=== PATIENT | male | born 1950 | race Caucasian/White ===

== ENCOUNTER 2022-06-18 19:44 | Inpatient (IN) ==
[2022-06-18] MEDS ORDERED: 0.9 % SODIUM CHLORIDE 1,000 ML IV ONE (19:55)
[2022-06-18 20:12] LABS: POC Calcium, Ionized 1.11 (1.16-1.32); POC Creatinine 0.7 (0.6-1.2); POC Potassium 3.2 (3.3-5.1)
[2022-06-18] MEDS ORDERED: diphenhydrAMINE 50 MG/ML VIAL IV ONE (20:20)
[2022-06-18] MEDS ORDERED: ALPRAZolam 0.5 MG TABLET PO ONE (20:20)
--- NOTE | 2022-06-18 20:23 | Emergency Department Note ---
Anxiety HPI General Chief Complaint: Anxiety Stated Complaint: anxiety Time Seen by Provider: 06/18/22 19:54 Source: patient and family Mode of arrival: ambulatory Limitations: no limitations History of Present Illness HPI Narrative: Narrative: Patient presents ED with complaints of anxiety today. Patient just feels really anxious. He only takes Xanax but has not taken yet tonight. He states he only takes at night because also helps him sleep. He denies any suicidal ideation, homicidal ideation, auditory or visual hallucination, fever, chills, dysuria, hematuria, and or frequency. Son states that patient does have the begin stage of cirrhosis and his ammonia level has been going up so he does not know if that is playing a role. Patient takes lactulose 15 mg daily. said the last time he took it was this morning. states that he is just not himself as far as his energy level. She states that he is not speaking as sharply as he normally does. Seems like he is confused even though he is saying the appropriate thing. Again she refuses any facial droopiness, slurred speech, word salad. Patient denies any other alleviating or aggravating factors. Related Data Home Medications Medication Instructions Recorded Confirmed sildenafil 50 mg tablet 50 mg PO ONCE 03/12/15 06/12/22 B Complex 4 tab PO QDAY 06/18/22 06/18/22 BD 3 ml syringe with needles 1 ea IM MONTHLY 06/18/22 06/18/22 cyanocobalamin (vitamin B-12) 1 ml IM QMONTH 06/18/22 06/18/22 1,000 mcg/mL injection solution levothyroxine 112 mcg tablet 112 mcg PO BID 06/18/22 06/18/22 propranolol 10 mg tablet 1 tab PO BID 06/18/22 06/18/22 Previous Rx's Medication Instructions Recorded BD Specialty Use [place] 30 gauge #15 ea 11/13/16 x 1" (needle (disp) 30 gauge) blood sugar diagnostic (Accu-Chek #100 ea 12/23/18 Cecelia Plus test strips) blood-glucose meter (Accu-Chek #1 ea 12/23/18 Cecelia Plus Meter) alprazolam 0.5 mg tablet (Xanax) 0.5 mg PO QDAY PRN anxiety 90 days 07/06/20 #90 tabs chlorthalidone 25 mg tablet 25 mg PO QDAY Hypertension #30 tabs 03/14/22 glipizide 5 mg tablet, extended 5 mg PO QDAY #30 tabs 04/16/22 release 24 hr lactulose 10 gram/15 mL oral 15 ml PO QAM #946 mL 05/03/22 solution (Constulose) venlafaxine 37.5 mg 37.5 mg PO QDAY #30 caps 05/26/22 capsule,extended release 24 hr Allergies Allergy/AdvReac Type Severity Reaction Status Date / Time metoprolol AdvReac Mild Agitated Verified 05/26/22 09:08 Review of Systems ROS ROS Narrative: Narrative: All systems ED: reviewed and negative except as stated. [facility] Narrative Patient History Narrative: Narrative: Medical/Surgical/Family History All Active Problems (Updated 06/18/22 @ 20:59 by Israel Vance DO) Acute hepatic encephalopathy (Acute) Hyperammonemia (Acute) Thrombocytopenia (Acute) Acute hypokalemia (Acute) Elevated liver function tests (Acute) Refused influenza vaccine (Chronic) Postoperative abdominal pain (Acute) Cholelithiasis with acute on chronic cholecystitis without biliary obstruction (Chronic) Colon polyp (Chronic) Multiple gallstones (Chronic) Encounter for Health Maintenance Examination in Adult (Chronic) History of tonsillectomy (Acute) History of adenoidectomy (Acute) Hx of colonoscopy (Acute) Vitamin B12 deficiency (Chronic) Immune thrombocytopenic purpura (Chronic) Thrombocytasthenia (Acute 01/06/14) Seizures (Acute) Pancytopenia (Acute) Pancreatic calcification (Acute) Obesity (Acute) Irritable bowel disease (Acute) Insomnia (Chronic) Idiopathic thrombocytopenia purpura (Chronic) Hypothyroid (Chronic) Essential hypertension (Chronic) Hyperlipemia (Chronic) Calculus of gallbladder with chronic cholecystitis without obstruction (Chronic) ED (erectile dysfunction) (Acute) Diabetes mellitus (Chronic) Colon polyp (Acute 05/22/14) Alcoholic cirrhosis of liver (Acute) Anxiety (Acute 09/02/13) Anemia (Acute) Alcohol abuse (Chronic) Abnormal LFTs (liver function tests) (Chronic 01/06/14) Medical History Abnormal LFTs (liver function tests) (01/06/14) Alcohol abuse Alcoholic cirrhosis of liver See abdominal CT scan 04/26/2012 Anemia Anxiety (09/02/13) Calculus of gallbladder with chronic cholecystitis without obstruction Colon polyp (05/22/14) Colon polyp Diabetes mellitus ED (erectile dysfunction) Elevated liver function tests Encounter for Health Maintenance Examination in Adult Essential hypertension Hyperlipemia Hypothyroid Patient did have hyperthyroidism and had radiation treatment Idiopathic thrombocytopenia purpura Immune thrombocytopenic purpura Insomnia Irritable bowel disease Obesity Pancreatic calcification See abdominal CT scan 04/26/2012. Questionable chronic pancreatitis. Pancytopenia Seizures Last seizure was in 1993 and 1994 took medications for 7 years Thrombocytasthenia (01/06/14) Vitamin B12 deficiency Surgical History History of adenoidectomy when patient was [age] History of knee surgery 08/2009-bilateral knee surgery to reattach tendons History of laparoscopic cholecystectomy 01/22/2018 History of tonsillectomy when patient was [age] Hx of colonoscopy Family History Brother Family history of malignant neoplasm of gastrointestinal tract Father Hypertension Social History Smoking Status: Never smoker Alcohol Intake Frequency: 0-2 drinks per day Substance Use: does not use Exam Narrative Narrative: Narrative: General Limitations: no limitations General appearance: Present alert Head Head: Present atraumatic and normocephalic Respiratory Respiratory: Present normal lung sounds bilaterally; Absent respiratory distress Cardiovascular Cardiovascular: Present regular rate and normal rhythm Neurological Neurological: Present oriented X3 Psychiatric Psychiatric: Present anxious and polite Skin Skin: Present warm (WNL) and intact Course Course Course Narrative: Patient was evaluated for anxiety and some altered mental status when compared to baseline. Patient was alert and oriented but his responses were slow and his family state that this is not baseline for him. Labs show that patient was hypokalemic with a potassium of 3.2 which will replace orally. His ammonia level was extremely elevated greater than 170 which is most likely playing a role. He was given Xanax for his anxiety here in the ED. Labs also showed patient was thrombocytopenic which is chronic for him. Due to his elevated ammonia level and hepatic encephalopathy I believe patient should be admitted to the hospital. case discussed with hospitalist who has graciously accepted pt to be admitted Consultations Consultation #1: Case discussed with hospitalist, Dr. Webb, who is graciously accepted patient to be admitted to the hospital. Time: 21:25 Vital Signs Vital signs: Vital Signs Temperature 98.6 F 06/18/22 19:45 Pulse Rate 70 06/18/22 19:45 Respiratory Rate 18 06/18/22 19:45 Blood Pressure 156/88 06/18/22 19:45 Pulse Oximetry (%) 98 06/18/22 19:45 Oxygen Delivery Method 06/18/22 19:45 Temperature 98.6 F 06/18/22 19:45 Pulse Rate 73 06/18/22 21:01 Respiratory Rate 25 H 06/18/22 21:01 Blood Pressure 149/82 06/18/22 21:01 Pulse Oximetry (%) 97 06/18/22 21:01 Oxygen Delivery Method 06/18/22 19:45 MDM MDM Narrative Medical decision making narrative: Narrative: Differential Diagnosis Differential Diagnosis: Anxiety, elevated ammonia levels, UTI Medical Records Medical records reviewed: Yes I reviewed the patient's medical records. Lab Data Lab results reviewed: Yes I reviewed the patient's lab results. Result diagrams: 06/18/22 20:02 Labs: Lab Results 06/18/22 06/18/22 06/18/22 Range/Units 20:02 20:02 20:02 WBC 4.6 (4.5-11.0) K/mcL RBC 3.73 L (4.63-6.08) M/mcL Hgb 13.9 (13.7-17.5) g/dL Hct 38.8 L (40.1-51.0) % POC Hct (41-55) MCV 104.0 H (80.0-100.0) fL MCH 37.3 H (26.0-34.0) pg MCHC 35.8 (31.0-36.0) g/dL RDW 13.2 (11.5-14.5) % Plt Count 40 L* (140-440) K/mcL MPV 13.2 H (7.4-10.4) fL Immature Gran % (Auto) 0.4 (0.0-0.5) % Neut % (Auto) 72.3 (38.0-78.0) % Lymph % (Auto) 16.8 (15.5-49.0) % [place] % (Auto) 8.3 (1.0-12.0) % Eos % (Auto) 1.8 (0.0-7.0) % Baso % (Auto) 0.4 (0.0-2.0) % Lymph # (Auto) 0.77 L (1.50-4.80) K/mcL [place] # (Auto) 0.38 (0.10-0.90) K/mcL Eos # (Auto) 0.08 (0.00-0.70) K/mcL Baso # (Auto) 0.02 (0.00-0.30) K/mcL Immature Gran # 0.02 (0.00-0.05) K/mcl Absolute Neutrophils 3.30 (1.80-8.00) K/mcL POC Sodium (133-145) POC Potassium (3.3-5.1) POC Chloride (96-108) POC Total CO2 (22-30) POC BUN (6-20) POC Creatinine (0.6-1.2) POC Glucose (70-105) POC WB Ioniz Calcium (1.16-1.32) Total Bilirubin 2.1 H (0.1-1.0) mg/dL Direct Bilirubin 0.6 H (<0.3) mg/dL AST 80 H (<40) U/L ALT 63 H (<40) U/L Alkaline Phosphatase 161 H (39-117) U/L Ammonia 173 H (16-60) umol/L Total Protein 7.1 (5.9-8.4) gm/dL Albumin 3.6 (3.2-5.2) gm/dL Globulin 3.5 (2.2-3.7) gm/dL 06/18/22 Range/Units 20:07 WBC (4.5-11.0) K/mcL RBC (4.63-6.08) M/mcL Hgb (13.7-17.5) g/dL Hct (40.1-51.0) % POC Hct 41.0 (41-55) MCV (80.0-100.0) fL MCH (26.0-34.0) pg MCHC (31.0-36.0) g/dL RDW (11.5-14.5) % Plt Count (140-440) K/mcL MPV (7.4-10.4) fL Immature Gran % (Auto) (0.0-0.5) % Neut % (Auto) (38.0-78.0) % Lymph % (Auto) (15.5-49.0) % [place] % (Auto) (1.0-12.0) % Eos % (Auto) (0.0-7.0) % Baso % (Auto) (0.0-2.0) % Lymph # (Auto) (1.50-4.80) K/mcL [place] # (Auto) (0.10-0.90) K/mcL Eos # (Auto) (0.00-0.70) K/mcL Baso # (Auto) (0.00-0.30) K/mcL Immature Gran # (0.00-0.05) K/mcl Absolute Neutrophils (1.80-8.00) K/mcL POC Sodium 140 (133-145) POC Potassium 3.2 L (3.3-5.1) POC Chloride 106 (96-108) POC Total CO2 22.0 (22-30) POC BUN 11 (6-20) POC Creatinine 0.7 (0.6-1.2) POC Glucose 148 H (70-105) POC WB Ioniz Calcium 1.11 L (1.16-1.32) Total Bilirubin (0.1-1.0) mg/dL Direct Bilirubin (<0.3) mg/dL AST (<40) U/L ALT (<40) U/L Alkaline Phosphatase (39-117) U/L Ammonia (16-60) umol/L Total Protein (5.9-8.4) gm/dL Albumin (3.2-5.2) gm/dL Globulin (2.2-3.7) gm/dL Core Measures AMI Core Measures Followed: Yes Discharge Plan Patient/Caregiver Discharge Instructions Pt seen by SENIOR SPECIALIST/PA only: No Clinical Impression: Acute hepatic encephalopathy, Hyperammonemia, Thrombocytopenia, Acute hypokalemia Patient Disposition: Xfer As Outpt/Obs ([facility]) Condition: Fair Follow up with: Albaro Benjamin MD [Primary Care Provider] - Prescriptions: No Action (DME) needle (disp) 30 gauge [BD Specialty Use [place]] 30 x 1 " needle See Dose Instructions .ROUTE .MEDSUPPLY Qty: 15 0RF Dose Instruction: As directed Rx Instructions: use as directed for B12 injections monthly alprazolam [Xanax] 0.5 mg tablet 0.5 mg PO QDAY PRN (Reason: anxiety) 90 Days Qty: 90 1RF Rx Instructions: Patient is aware of potential for abuse, cognitive dysfunction chlorthalidone 25 mg tablet 25 mg PO QDAY Qty: 30 11RF Rx Instructions: 1 tablet in a.m. glipizide 5 mg tablet extended release 24 hr 5 mg PO QDAY Qty: 30 2RF lactulose [Constulose] 10 gram/15 mL solution 15 ml PO QAM Qty: 946 2RF sildenafil 50 mg tablet 50 mg PO ONCE PRN (Reason: Sexual Activity) Rx Instructions: administer 30 minutes to 4 hours before activity (DME) blood-glucose meter [Accu-Chek Cecelia Plus Meter] misc See Dose Instructions .ROUTE .MEDSUPPLY Qty: 1 0RF Dose Instruction: As directed Rx Instructions: As directed (DME) Accu-Chek Cecelia Plus test strp strip See Dose Instructions .ROUTE .MEDSUPPLY Qty: 100 5RF Dose Instruction: As directed Rx Instructions: Test 1 - 2 times a day venlafaxine 37.5 mg capsule,extended release 24hr 37.5 mg PO QDAY Qty: 30 1RF Rx Instructions: Call office in 2 weeks. B Complex 4 tab PO QDAY propranolol 10 mg tablet 1 tab PO BID cyanocobalamin (vitamin B-12) 1,000 mcg/mL solution 1 ml IM QMONTH levothyroxine 112 mcg tablet 112 mcg PO BID BD 3 ml syringe with needles 1 ea IM MONTHLY Rx Instructions: use as directed for B12 injections IM MONTHLY
[2022-06-18 20:45] LABS: Basophils # (Auto) 0.02 K/mcL (0.00-0.30); Basophils % (Auto) 0.4 % (0.0-2.0); Eosinophils # (Auto) 0.08 K/mcL (0.00-0.70); Eosinophils % (Auto) 1.8 % (0.0-7.0); Hematocrit 38.8 % (40.1-51.0); Hemoglobin 13.9 g/dL (13.7-17.5); Lymphocytes # (Auto) 0.77 K/mcL (1.50-4.80); Lymphocytes % (Auto) 16.8 % (15.5-49.0); Mean Corpuscular HGB Conc 35.8 g/dL (31.0-36.0); Mean Platelet Volume 13.2 fL (7.4-10.4); Monocytes # (Auto) 0.38 K/mcL (0.10-0.90); Monocytes % (Auto) 8.3 % (1.0-12.0); Neutrophils % (Auto) 72.3 % (38.0-78.0); Platelet Count 40 K/mcL (140-440); RBC 3.73 M/mcL (4.63-6.08); Red Cell Distribution Width 13.2 % (11.5-14.5); WBC 4.6 K/mcL (4.5-11.0)
[2022-06-18 21:00] LABS: ALT/SGPT 63 U/L (<40); AST/SGOT 80 U/L (<40); Albumin 3.6 gm/dL (3.2-5.2); Alkaline Phosphatase 161 U/L (39-117); Bilirubin,Direct 0.6 mg/dL (<0.3); Bilirubin,Total 2.1 mg/dL (0.1-1.0); Globulin 3.5 gm/dL (2.2-3.7)
[2022-06-18] MEDS ORDERED: POTASSIUM CHLORIDE 20 MEQ TABLET PO ONE (21:09)
[2022-06-18] MEDS ORDERED: LACTULOSE 20 GM/30 ML ORAL.SOL PO ONE (21:12)
--- NOTE | 2022-06-18 21:46 | Internal Med History&Physical ---
HPI History of Present Illness Patient information: Note initiated : 06/18/22 at 9:42 pm Service Date, if different from initiated Date: [] Patient: Nolan Trinh a 71 y/o M admitted on for anxiety. Chief Complaint: [] History of present illness: Mr. Trinh is a 71 year old M Presents to the ED with anxiety and confusion. Per the he has been increasingly confused today and she says he has been more drowsy and sleepy but also more anxious. He has had issues with anxiety in the past per notes. He also has a history of alcoholic cirrhosis. His ammonia was 173 in the ED and I also note that looking at the old labs on March he had a level of 143. He says he takes lactulose every day and has several bowel movements a day. He says he quit drinking alcohol 3 months ago. Follows with Shivani Soto and Dr. Wong. He had an EGD a week ago that showed mild esophageal varices and congestive gastropathy was noted. Patient has some nausea but no vomiting today. Patient denies abdominal swelling or pain. No report of GI bleeding. Review of Systems: Positives as above. Denies headache/fever/chills/vomiting/chest or abdominal pain/cough/dyspnea/diarrhea. Many 10 point review of system reviewed negative PFSH PFSH All Active Problems (Updated 06/18/22 @ 20:59 by Israel Vance DO) Acute hepatic encephalopathy (Acute) Hyperammonemia (Acute) Thrombocytopenia (Acute) Acute hypokalemia (Acute) Elevated liver function tests (Acute) Refused influenza vaccine (Chronic) Postoperative abdominal pain (Acute) Cholelithiasis with acute on chronic cholecystitis without biliary obstruction (Chronic) Colon polyp (Chronic) Multiple gallstones (Chronic) Encounter for Health Maintenance Examination in Adult (Chronic) History of tonsillectomy (Acute) History of adenoidectomy (Acute) Hx of colonoscopy (Acute) Vitamin B12 deficiency (Chronic) Immune thrombocytopenic purpura (Chronic) Thrombocytasthenia (Acute 01/06/14) Seizures (Acute) Pancytopenia (Acute) Pancreatic calcification (Acute) Obesity (Acute) Irritable bowel disease (Acute) Insomnia (Chronic) Idiopathic thrombocytopenia purpura (Chronic) Hypothyroid (Chronic) Essential hypertension (Chronic) Hyperlipemia (Chronic) Calculus of gallbladder with chronic cholecystitis without obstruction (Chronic) ED (erectile dysfunction) (Acute) Diabetes mellitus (Chronic) Colon polyp (Acute 05/22/14) Alcoholic cirrhosis of liver (Acute) Anxiety (Acute 09/02/13) Anemia (Acute) Alcohol abuse (Chronic) Abnormal LFTs (liver function tests) (Chronic 01/06/14) Medical History Abnormal LFTs (liver function tests) (01/06/14) Alcohol abuse Alcoholic cirrhosis of liver See abdominal CT scan 04/26/2012 Anemia Anxiety (09/02/13) Calculus of gallbladder with chronic cholecystitis without obstruction Colon polyp (05/22/14) Colon polyp Diabetes mellitus ED (erectile dysfunction) Elevated liver function tests Encounter for Health Maintenance Examination in Adult Essential hypertension Hyperlipemia Hypothyroid Patient did have hyperthyroidism and had radiation treatment Idiopathic thrombocytopenia purpura Immune thrombocytopenic purpura Insomnia Irritable bowel disease Obesity Pancreatic calcification See abdominal CT scan 04/26/2012. Questionable chronic pancreatitis. Pancytopenia Seizures Last seizure was in 1993 and 1994 took medications for 7 years Thrombocytasthenia (01/06/14) Vitamin B12 deficiency Surgical History History of adenoidectomy when patient was [age] History of knee surgery 08/2009-bilateral knee surgery to reattach tendons History of laparoscopic cholecystectomy 01/22/2018 History of tonsillectomy when patient was [age] Hx of colonoscopy Family History Brother Family history of malignant neoplasm of gastrointestinal tract Father Hypertension Social History household members: spouse housing: house lives independently: Yes marital status: occupational status: retired smoking status: Never smoker alcohol intake frequency: 0-2 drinks per day substance use type: does not use MEDS/ALLERGIES Home Medications and Allergies Home Medications Medication Instructions Recorded Confirmed Type sildenafil 50 mg tablet 50 mg PO ONCE PRN Sexual Activity 03/12/15 06/18/22 History BD Specialty Use [place] 30 gauge #15 ea 11/13/16 06/18/22 Rx x 1" (needle (disp) 30 gauge) blood sugar diagnostic (Accu-Chek #100 ea 12/23/18 06/18/22 Rx Cecelia Plus test strips) blood-glucose meter (Accu-Chek #1 ea 12/23/18 06/18/22 Rx Cecelia Plus Meter) alprazolam 0.5 mg tablet (Xanax) 0.5 mg PO QDAY PRN anxiety 90 days 07/06/20 06/18/22 Rx #90 tabs chlorthalidone 25 mg tablet 25 mg PO QDAY Hypertension #30 tabs 03/14/22 06/18/22 Rx glipizide 5 mg tablet, extended 5 mg PO QDAY #30 tabs 04/16/22 06/18/22 Rx release 24 hr lactulose 10 gram/15 mL oral 15 ml PO QAM #946 mL 05/03/22 06/18/22 Rx solution (Constulose) venlafaxine 37.5 mg 37.5 mg PO QDAY #30 caps 05/26/22 06/18/22 Rx capsule,extended release 24 hr B Complex 4 tab PO QDAY 06/18/22 06/18/22 History BD 3 ml syringe with needles 1 ea IM MONTHLY 06/18/22 06/18/22 History cyanocobalamin (vitamin B-12) 1 ml IM QMONTH 06/18/22 06/18/22 History 1,000 mcg/mL injection solution levothyroxine 112 mcg tablet 112 mcg PO BID 06/18/22 06/18/22 History propranolol 10 mg tablet 1 tab PO BID 06/18/22 06/18/22 History Allergies Allergy/AdvReac Type Severity Reaction Status Date / Time metoprolol AdvReac Mild Agitated Verified 05/26/22 09:08 EXAM Constitutional Vitals: Temp Pulse Resp BP Pulse Ox O2 Del Method 98.6 F 73 25 H 149/82 97 06/18/22 19:45 06/18/22 21:01 06/18/22 21:01 06/18/22 21:01 06/18/22 21:01 06/18/22 19:45 Exam: General: Alert, Awake, No acute Distress, obese Eyes/N/T: EOMI, PERRL, MM Head/Neck: neck supple, normocephalic atraumatic CV: RRR, No murmurs, normal s1/s2 Pulm: Clear b/l, no wheezing/rhonchi/rales Abd: soft, nontender, +BS x4 Ext: no clubbing/cyanosis/edema Neuro: somewhat drowsy, no focal deficits, moves all extremities, CN 2-12 grossly intact, symmetrical strength b/l upper/lower, sensations intact b/l upper/lower. Mildly confused and slow to answer questions Skin: warm/dry DATA Data Completed and Pending Labs: Labs from last 24 hours 06/18/22 06/18/22 06/18/22 20:07 20:02 20:02 WBC RBC Hgb Hct POC Hct 41.0 MCV MCH MCHC RDW Plt Count MPV Immature Gran % (Auto) Neut % (Auto) Lymph % (Auto) [place] % (Auto) Eos % (Auto) Baso % (Auto) Lymph # (Auto) [place] # (Auto) Eos # (Auto) Baso # (Auto) Immature Gran # Absolute Neutrophils POC Sodium 140 POC Potassium 3.2 L POC Chloride 106 POC Total CO2 22.0 POC BUN 11 POC Creatinine 0.7 POC Glucose 148 H POC WB Ioniz Calcium 1.11 L Total Bilirubin 2.1 H Direct Bilirubin 0.6 H AST 80 H ALT 63 H Alkaline Phosphatase 161 H Ammonia 173 H Total Protein 7.1 Albumin 3.6 Globulin 3.5 06/18/22 20:02 WBC 4.6 RBC 3.73 L Hgb 13.9 Hct 38.8 L POC Hct MCV 104.0 H MCH 37.3 H MCHC 35.8 RDW 13.2 Plt Count 40 L* MPV 13.2 H Immature Gran % (Auto) 0.4 Neut % (Auto) 72.3 Lymph % (Auto) 16.8 [place] % (Auto) 8.3 Eos % (Auto) 1.8 Baso % (Auto) 0.4 Lymph # (Auto) 0.77 L [place] # (Auto) 0.38 Eos # (Auto) 0.08 Baso # (Auto) 0.02 Immature Gran # 0.02 Absolute Neutrophils 3.30 POC Sodium POC Potassium POC Chloride POC Total CO2 POC BUN POC Creatinine POC Glucose POC WB Ioniz Calcium Total Bilirubin Direct Bilirubin AST ALT Alkaline Phosphatase Ammonia Total Protein Albumin Globulin A/P Narrative A/P Narrative: A: *Hepatic Encephalopathy: -Patient states he has been taking his lactulose and having several bowel movements a day -Seems ammonia has been chronically elevated per records *Alcoholic cirrhosis: Follows with Shivani Soto -Sequelae of thrombocytopenia/hyperbilirubinemia/small esophageal varices *Hypokalemia, mild: *Depression/anxiety: *DM2: *Hypothyroidism: P: -Continue home lactulose(titrate to 2-3 BM/day) and add rifaximin -IVF -Potassium repletion -abd ultrasound assess for ascites -Hold diuretic for now -ssi -check TSH/INR - -PT/OT -CM for placement needs -ppx: SCD(hold chemical for plt <50k) Time Spent With Patient Time: Total time spent is greater than 50% in coordination of care (as documented) at patient's floor/unit and/or counseling patient: Total time spent with greater than 50% in coordination of care (as documented) at patient's floor/unit and/or counseling patient:: Greater than 70 minutes QUALITY Stroke Symptom Onset Unknown: No
[2022-06-19] MEDS ORDERED: DEXTROSE 50% 50 ML VIAL IV PRN (05:11)
[2022-06-19] MEDS ORDERED: LACTULOSE 20 GM/30 ML ORAL.SOL PO PRN (05:11)
[2022-06-19] MEDS ORDERED: LORazepam 2 MG/ML VIAL IV PRN (05:11)
[2022-06-19] MEDS ORDERED: IPRATROPIUM/ALBUTEROL 3 ML AMPUL.NEB NEB PRN (05:11)
[2022-06-19] MEDS ORDERED: ONDANSETRON 4 MG/2 ML VIAL IV PRN (05:11)
[2022-06-19] MEDS ORDERED: 0.9 % SODIUM CHLORIDE 1,000 ML IV ONE (05:11)
[2022-06-19] MEDS ORDERED: POTASSIUM CHLORIDE 40 MEQ in DEXTROSE 5% IN WATER 500 ML IV PRN (05:11)
[2022-06-19] MEDS ORDERED: DEXTROSE 31 GM ORAL.SUSP PO PRN (05:11)
[2022-06-19] MEDS ORDERED: MAGNESIUM SULFATE 2 GM/50 ML BAG IV PRN (05:11)
[2022-06-19] MEDS ORDERED: POTASSIUM CHLORIDE 20 MEQ TABLET PO PRN ×2 (05:11)
[2022-06-19] MEDS ORDERED: ACETAMINOPHEN 325 MG TABLET PO PRN (05:11)
[2022-06-19 06:36] LABS: INR 1.2 (0.9-1.1); Prothrombin Time 15.8 sec (11.9-14.5)
[2022-06-19 06:43] LABS: Basophils # (Auto) 0.03 K/mcL (0.00-0.30); Basophils % (Auto) 0.6 % (0.0-2.0); Eosinophils # (Auto) 0.09 K/mcL (0.00-0.70); Eosinophils % (Auto) 1.8 % (0.0-7.0); Hematocrit 39.6 % (40.1-51.0); Hemoglobin 13.8 g/dL (13.7-17.5); Lymphocytes # (Auto) 1.06 K/mcL (1.50-4.80); Lymphocytes % (Auto) 20.7 % (15.5-49.0); Mean Cell Volume 103.7 fL (80.0-100.0); Mean Corpuscular HGB Conc 34.8 g/dL (31.0-36.0); Mean Platelet Volume 12.9 fL (7.4-10.4); Monocytes # (Auto) 0.51 K/mcL (0.10-0.90); Neutrophils % (Auto) 66.7 % (38.0-78.0); Platelet Count 41 K/mcL (140-440); RBC 3.82 M/mcL (4.63-6.08); Red Cell Distribution Width 13.1 % (11.5-14.5); WBC 5.1 K/mcL (4.5-11.0)
[2022-06-19 07:00] LABS: ALT/SGPT 60 U/L (<40); AST/SGOT 79 U/L (<40); Albumin 3.3 gm/dL (3.2-5.2); Albumin/Globulin Ratio 0.9 (1.0-2.3); Alkaline Phosphatase 133 U/L (39-117); Bilirubin,Direct 0.8 mg/dL (<0.3); Bilirubin,Total 2.7 mg/dL (0.1-1.0); Blood Urea Nitrogen 11 mg/dL (8-23); Calcium 8.7 mg/dL (8.6-10.4); Carbon Dioxide 22 mmol/L (22-30); Chloride 105 mmol/L (96-108); Globulin 3.7 gm/dL (2.2-3.7); Glomerular Filtration Rate 96; Glucose 84 mg/dL (70-105); Lactate Dehydrogenase 283 U/L (135-225); Phosphorous 3.9 mg/dL (2.5-4.5); Thyroid Stimulating Hormone 0.04 uIU/mL (0.27-5.01); Triglycerides 176 mg/dL (<150); Uric Acid 5.1 mg/dL (2.5-8.0)
[2022-06-19] MEDS ORDERED: LEVOTHYROXINE SODIUM 112 MCG TABLET PO SCH (07:30)
--- NOTE | 2022-06-19 07:44 | Internal Med Progress Note ---
SUBJECTIVE Subjective Patient information: Note initiated : 06/19/22 at 7:41 am Service Date, if different from initiated Date: [] Patient: Nolan Trinh 71 y/o M admitted on 06/18/22 for anxiety. Chief Complaint: [] Interval history: History of present illness: Mr. Trinh is a 71 year old M Presents to the ED with anxiety and confusion. Per the he has been increasingly confused today and she says he has been more drowsy and sleepy but also more anxious. He has had issues with anxiety in the past per notes. He also has a history of alcoholic cirrhosis. His ammonia was 173 in the ED and I also note that looking at the old labs on March he had a level of 143. He says he takes lactulose every day and has several bowel movements a day. He says he quit drinking alcohol 3 months ago. Follows with Shivani Soto and Dr. Wong. He had an EGD a week ago that showed mild esophageal varices and congestive gastropathy was noted. Patient has some nausea but no vomiting today. Patient denies abdominal swelling or pain. No report of GI bleeding. 06/19 Still with some confusion per son. Ammonia mildly decreased but still elevated. Unable to get the rifaximin until today. TSH low and T4 mildly high, likely contributing to his anxiety/agitation. We will hold levothyroxine for now and lower it when we restart. Platelets stable. Mild hypokalemia and will replace. Review of Systems: denies headache/fever/chills/nausea/vomiting/chest or abdominal pain/cough/dyspnea. Otherwise see above. Constitutional Vitals: Vital Signs Temp Pulse Resp BP Pulse Ox O2 Del Method 98.5 F 66 24 H 128/75 96 06/19/22 03:15 06/19/22 03:15 06/19/22 03:15 06/19/22 03:15 06/19/22 03:15 06/19/22 03:15 Period Temp Pulse Resp BP Sys/Choi Pulse Ox O2 Del Method O2 Flow Rate Last 24 Hr 98.5 F-98.8 F 66-73 17-31 128-156/75-100 94-99 Room Air-Room Air Intake and Output 06/18/22 06/19/22 06/19/22 21:59 05:59 13:59 Intake Total 0 Output Total 650 Balance -650 Weight 99.79 kg 123.15 kg Intake & Output: Intake & Output 06/18/22 06/19/22 06/19/22 21:59 05:59 13:59 Intake Total 0 Output Total 650 Balance -650 Weight 99.79 kg 123.15 kg Intake: Oral 0 Output: Void Amount 650 Other: Urine Appearance Clear Urine Color Dark Yellow Stool Size Moderate Stool Color Brown Stool Consistency Loose # Bowel Movements 1 Exam: General: Alert, Awake, No acute Distress, obese Eyes/N/T: EOMI, Head/Neck: neck supple, CV: RRR, No murmurs, Pulm: Clear b/l, no wheezing/rhonchi/rales Abd: soft, nontender, +BS x4 Ext: no clubbing/cyanosis/edema Neuro: Awake, no focal deficits, moves all extremities, mild confusion Skin: warm/dry OBJ DATA Labs CBC & Chem 7: 06/19/22 05:38 06/19/22 05:38 Labs: Abnormal Lab Results 06/19/22 06/19/22 06/19/22 05:38 05:38 05:38 RBC 3.82 L Hct 39.6 L MCV 103.7 H MCH 36.1 H Plt Count 41 L* MPV 12.9 H Lymph # (Auto) 1.06 L PT 15.8 H INR 1.2 H POC Potassium Potassium 3.1 L POC Glucose POC WB Ioniz Calcium Total Bilirubin 2.7 H Direct Bilirubin 0.8 H GGT 278 H AST 79 H ALT 60 H Alkaline Phosphatase 133 H Ammonia Lactate Dehydrogenase 283 H Albumin/Globulin Ratio 0.9 L Triglycerides 176 H TSH 0.04 L 06/18/22 06/18/22 06/18/22 20:07 20:02 20:02 RBC Hct MCV MCH Plt Count MPV Lymph # (Auto) PT INR POC Potassium 3.2 L Potassium POC Glucose 148 H POC WB Ioniz Calcium 1.11 L Total Bilirubin 2.1 H Direct Bilirubin 0.6 H GGT AST 80 H ALT 63 H Alkaline Phosphatase 161 H Ammonia 173 H Lactate Dehydrogenase Albumin/Globulin Ratio Triglycerides TSH 06/18/22 20:02 RBC 3.73 L Hct 38.8 L MCV 104.0 H MCH 37.3 H Plt Count 40 L* MPV 13.2 H Lymph # (Auto) 0.77 L PT INR POC Potassium Potassium POC Glucose POC WB Ioniz Calcium Total Bilirubin Direct Bilirubin GGT AST ALT Alkaline Phosphatase Ammonia Lactate Dehydrogenase Albumin/Globulin Ratio Triglycerides TSH Meds: Medications Acetaminophen (Acetaminophen 325 Mg Tablet) 650 mg PO Q6HP PRN; Protocol PRN Reason: Per Pain Protocol/Fever > 101 Albuterol/Ipratropium (Ipratropium/Albuterol 3 Ml Ampul.Neb) 3 ml NEB Q4HP PRN PRN Reason: Shortness Of Breath Dextrose (Dextrose 50% 50 Ml Vial) 0 ml IV UD PRN PRN Reason: Per Sliding Scale Diagnostic Test (Pha) (Accu-Chek 1 Each Strip) 1 each FS ACHS [facility] Glucose (Dextrose 31 Gm Oral.Susp) 15 gm PO PRN PRN PRN Reason: Hypoglycemia Potassium Chloride 40 meq/ (Dextrose) 520 mls @ 130 mls/hr IV UD PRN PRN Reason: Potassium < 3 Magnesium Sulfate (Magnesium Sulfate) 2 gm in 50 mls @ 50 mls/hr IV UD PRN PRN Reason: Magnesium </= 1.6 Sodium Chloride (Sodium Chloride 0.9%) 1,000 mls @ 75 mls/hr IV .[id number] ONE Stop: 06/19/22 18:30 Last Admin: 06/19/22 05:15 Dose: 75 mls/hr Insulin Human Lispro (Insulin Lispro 1 Unit/0.01 Ml Unit) 0 unit SQ [facility]; Protocol Lactulose (Lactulose 20 Gm/30 Ml Oral.Isabella) 20 gm PO DAILYP PRN PRN Reason: Constipation Lactulose (Lactulose 20 Gm/30 Ml Oral.Isabella) 20 gm PO TID [facility] Levothyroxine Sodium (Levothyroxine Sodium 112 Mcg Tablet) 224 mcg PO QAMAC [facility] Lorazepam (Lorazepam 2 Mg/Ml Vial) 0.5 mg IV Q4-6HP PRN PRN Reason: ANXIETY/SEDATION Ondansetron HCl (Ondansetron 4 Mg/2 Ml Vial) 4 mg IV Q4HP PRN PRN Reason: Nausea And Vomiting Potassium Chloride (Potassium Chloride 20 Meq Tablet) 40 meq PO UD PRN PRN Reason: Potssium is 3-3.5 Potassium Chloride (Potassium Chloride 20 Meq Tablet) 40 meq PO UD PRN PRN Reason: Potassium < 3 Propranolol HCl (Propranolol 10 Mg Tablet) 10 mg PO BID JESUS Venlafaxine HCl (Venlafaxine 37.5 Mg Tab.Er.24h) 37.5 mg PO QDAY JESUS A/P Narrative A/P Narrative: A: *Hepatic Encephalopathy: -Patient states he has been taking his lactulose and having several bowel movements a day -Seems ammonia has been chronically elevated per records *Alcoholic cirrhosis: Follows with Shivani Soto -Sequelae of thrombocytopenia/hyperbilirubinemia/transaminitis/ small esophageal varices -no ascites on u/s *h/o ITP: *Hypokalemia, mild: *Depression/anxiety: *DM2: *Hypothyroidism: tsh 0.04 and T4 1.79 P: -Continue home lactulose(titrate to 2-3 BM/day) and add rifaximin -s/p IVF -Potassium repletion -Hold diuretic for now -ssi -decrease levothyroxine -PT/OT -CM for placement needs -ppx: SCD(hold chemical for plt <50k) Time Spent With Patient Time: Total time spent is greater than 50% in coordination of care (as documented) at patient's floor/unit and/or counseling patient: Total time spent with greater than 50% in coordination of care (as documented) at patient's floor/unit and/or counseling patient:: 25 - 35 minutes QUALITY Stroke Symptom Onset Unknown: No VTE Deep Vein Thrombosis/Pulmonary Embolism Present on Admission: No
--- NOTE | 2022-06-19 08:32 | Ultrasound Report ---
History: Cirrhosis, evaluate for ascites FINDINGS: All four quadrants of the abdomen were scanned. Patient has no ascites. No gross mass is detected. IMPRESSION: Normal exam without ascites Interpreted and Authenticated by: Marcos Arellano 06/19/22
[2022-06-19] MEDS: LACTULOSE 20 GM/30 ML ORAL.SOL PO SCH ×3 (08:44→20:31)
[2022-06-19] MEDS: VENLAFAXINE 37.5 MG TAB.ER.24H PO SCH (08:45)
[2022-06-19] MEDS: PROPRANOLOL 10 MG TABLET PO SCH ×3 (08:45→20:33)
[2022-06-19] MEDS: RIFAXIMIN 550 MG TABLET PO SCH ×2 (08:45→20:32)
[2022-06-19] MEDS: POTASSIUM CHLORIDE 20 MEQ TABLET PO SCH ×2 (08:45→17:13)
[2022-06-19] MEDS: INSULIN LISPRO 1 UNIT/0.01 ML UNIT SQ SCH ×4 (08:46→20:11)
[2022-06-19 09:43] LABS: Appearance,Urine Clear (Clear); Bilirubin,Urine Negative (Negative); Color,Urine Yellow; Culture Indicated,Urine No; Glucose,Urine (UA) Negative (Negative); Ketones,Urine Negative (Negative); Leukocyte Esterase,Urine Negative /uL (Negative); Mucus,Urine FEW /hpf; Nitrate,Urine Negative (Negative); Protein,Urine Negative (Negative); Specific Gravity,Urine 1.025 (1.000-1.035); Urine Blood Trace-intact ery/mcL (Negative); Urine RBC 2 /hpf (0-3); Urine Squamous Epithelial Cell 0 /hpf (0-4); Urine WBC 1 /hpf (0-4); Urobilinogen,Urine Normal
[2022-06-19] MEDS: 0.9 % SODIUM CHLORIDE 10 ML SYRINGE IV SCH (20:32)
[2022-06-20] MEDS: 0.9 % SODIUM CHLORIDE 10 ML SYRINGE IV SCH (05:57)
[2022-06-20] MEDS: INSULIN LISPRO 1 UNIT/0.01 ML UNIT SQ SCH (07:21)
--- NOTE | 2022-06-20 07:51 | Internal Med Progress Note ---
SUBJECTIVE Subjective Patient information: Note initiated : 06/20/22 at 7:47 am Service Date, if different from initiated Date: [] Patient: Nolan Trinh 71 y/o M admitted on 06/18/22 for anxiety. Chief Complaint: [] Interval history: History of present illness: Mr. Trinh is a 71 year old M Presents to the ED with anxiety and confusion. Per the he has been increasingly confused today and she says he has been more drowsy and sleepy but also more anxious. He has had issues with anxiety in the past per notes. He also has a history of alcoholic cirrhosis. His ammonia was 173 in the ED and I also note that looking at the old labs on March he had a level of 143. He says he takes lactulose every day and has several bowel movements a day. He says he quit drinking alcohol 3 months ago. Follows with Shivani Soto and Dr. Wong. He had an EGD a week ago that showed mild esophageal varices and congestive gastropathy was noted. Patient has some nausea but no vomiting today. Patient denies abdominal swelling or pain. No report of GI bleeding. 06/19 Still with some confusion per son. Ammonia mildly decreased but still elevated. Unable to get the rifaximin until today. TSH low and T4 mildly high, likely contributing to his anxiety/agitation. We will hold levothyroxine for now and lower it when we restart. Platelets stable. Mild hypokalemia and will replace. 06/20 Patient feeling better. Much more clear. Per son is at baseline. No overnight event or new complaints. Patient will continue on rifaximin and close follow- up with GI Review of Systems: denies headache/fever/chills/nausea/vomiting/chest or abdominal pain/cough/dyspnea. Otherwise see above. Constitutional Vitals: Vital Signs Temp Pulse Resp BP Pulse Ox O2 Del Method 98.7 F 57 L 20 104/56 97 06/20/22 07:22 06/20/22 04:00 06/20/22 07:22 06/20/22 07:22 06/20/22 07:22 06/20/22 07:22 Period Temp Pulse Resp BP Sys/Choi Pulse Ox O2 Del Method O2 Flow Rate Last 24 Hr 97.7 F-98.8 F 55-66 16-24 104-134/56-77 20-98 Room Air-Room Air Intake and Output 06/19/22 06/20/22 06/20/22 21:59 05:59 13:59 Intake Total 1999 240 Output Total 1825 925 Balance 175 -685 Weight 122.198 kg Intake & Output: Intake & Output 06/19/22 06/20/22 06/20/22 21:59 05:59 13:59 Intake Total 1999 240 Output Total 1825 925 Balance 175 -685 Weight 122.198 kg Intake: IV 1000 Sodium Chloride 0.9% 1,000 ml @ 1000 75 mls/hr IV .[id number] Rx#: [id number] Oral 1000 240 Output: Void Amount 1829 925 Other: Meal Lunch Percent of Meal Consumed 100% Feeding Ability Independent Urine Appearance Clear Clear Urine Color Humphreys Humphreys Urine Odor Normal Stool Size Large Moderate Stool Color Brown Brown Stool Consistency Loose Loose # Bowel Movements 1 1 Exam: General: Alert, Awake, No acute Distress, obese Eyes/N/T: EOMI, Head/Neck: neck supple, CV: RRR, No murmurs, Pulm: Clear b/l, no wheezing/rhonchi/rales Abd: soft, nontender, +BS x4 Ext: no clubbing/cyanosis/edema Neuro: Awake, no focal deficits, moves all extremities, mentation much more clear today Skin: warm/dry OBJ DATA Labs CBC & Chem 7: 06/19/22 05:38 06/19/22 05:38 Labs: Abnormal Lab Results 06/20/22 06/19/22 06/19/22 05:48 08:38 05:38 RBC Hct MCV MCH Plt Count MPV Lymph # (Auto) PT INR POC Potassium Potassium 3.1 L POC Glucose POC WB Ioniz Calcium Total Bilirubin 2.7 H Direct Bilirubin 0.8 H GGT 278 H AST 79 H ALT 60 H Alkaline Phosphatase 133 H Ammonia 70 H Lactate Dehydrogenase 283 H Albumin/Globulin Ratio 0.9 L Triglycerides 176 H TSH 0.04 L Free T4 Urine Occult Blood Trace-intact A Urine Mucus Few A 06/19/22 06/19/22 06/19/22 05:38 05:38 05:35 RBC 3.82 L Hct 39.6 L MCV 103.7 H MCH 36.1 H Plt Count 41 L* MPV 12.9 H Lymph # (Auto) 1.06 L PT 15.8 H INR 1.2 H POC Potassium Potassium POC Glucose POC WB Ioniz Calcium Total Bilirubin Direct Bilirubin GGT AST ALT Alkaline Phosphatase Ammonia Lactate Dehydrogenase Albumin/Globulin Ratio Triglycerides TSH Free T4 1.79 H Urine Occult Blood Urine Mucus 06/18/22 06/18/22 06/18/22 20:07 20:02 20:02 RBC Hct MCV MCH Plt Count MPV Lymph # (Auto) PT INR POC Potassium 3.2 L Potassium POC Glucose 148 H POC WB Ioniz Calcium 1.11 L Total Bilirubin 2.1 H Direct Bilirubin 0.6 H GGT AST 80 H ALT 63 H Alkaline Phosphatase 161 H Ammonia 173 H Lactate Dehydrogenase Albumin/Globulin Ratio Triglycerides TSH Free T4 Urine Occult Blood Urine Mucus 06/18/22 20:02 RBC 3.73 L Hct 38.8 L MCV 104.0 H MCH 37.3 H Plt Count 40 L* MPV 13.2 H Lymph # (Auto) 0.77 L PT INR POC Potassium Potassium POC Glucose POC WB Ioniz Calcium Total Bilirubin Direct Bilirubin GGT AST ALT Alkaline Phosphatase Ammonia Lactate Dehydrogenase Albumin/Globulin Ratio Triglycerides TSH Free T4 Urine Occult Blood Urine Mucus Meds: Medications Acetaminophen (Acetaminophen 325 Mg Tablet) 650 mg PO Q6HP PRN; Protocol PRN Reason: Per Pain Protocol/Fever > 101 Albuterol/Ipratropium (Ipratropium/Albuterol 3 Ml Ampul.Neb) 3 ml NEB Q4HP PRN PRN Reason: Shortness Of Breath Dextrose (Dextrose 50% 50 Ml Vial) 0 ml IV UD PRN PRN Reason: Per Sliding Scale Diagnostic Test (Pha) (Accu-Chek 1 Each Strip) 1 each FS ACHS [facility] Last Admin: 06/20/22 07:20 Dose: 1 each Glucose (Dextrose 31 Gm Oral.Susp) 15 gm PO PRN PRN PRN Reason: Hypoglycemia Potassium Chloride 40 meq/ (Dextrose) 520 mls @ 130 mls/hr IV UD PRN PRN Reason: Potassium < 3 Magnesium Sulfate (Magnesium Sulfate) 2 gm in 50 mls @ 50 mls/hr IV UD PRN PRN Reason: Magnesium </= 1.6 Insulin Human Lispro (Insulin Lispro 1 Unit/0.01 Ml Unit) 0 unit SQ ACHS [facility]; Protocol Last Admin: 06/20/22 07:21 Dose: Not Given Lactulose (Lactulose 20 Gm/30 Ml Oral.Isabella) 20 gm PO DAILYP PRN PRN Reason: Constipation Lactulose (Lactulose 20 Gm/30 Ml Oral.Isabella) 20 gm PO TID [facility] Last Admin: 06/19/22 20:31 Dose: 20 gm Levothyroxine Sodium (Levothyroxine 150 Mcg Tablet) 150 mcg PO QAMAC [facility] Lorazepam (Lorazepam 2 Mg/Ml Vial) 0.5 mg IV Q4-6HP PRN PRN Reason: ANXIETY/SEDATION Ondansetron HCl (Ondansetron 4 Mg/2 Ml Vial) 4 mg IV Q4HP PRN PRN Reason: Nausea And Vomiting Potassium Chloride (Potassium Chloride 20 Meq Tablet) 40 meq PO UD PRN PRN Reason: Potssium is 3-3.5 Potassium Chloride (Potassium Chloride 20 Meq Tablet) 40 meq PO UD PRN PRN Reason: Potassium < 3 Propranolol HCl (Propranolol 10 Mg Tablet) 10 mg PO BID [facility] Last Admin: 06/19/22 20:33 Dose: Not Given Sodium Chloride (0.9 % Sodium Chloride 10 Ml Syringe) 10 ml IV Q8 [facility] Last Admin: 06/20/22 05:57 Dose: 10 ml Venlafaxine HCl (Venlafaxine 37.5 Mg Tab.Er.24h) 37.5 mg PO QDAY [facility] Last Admin: 06/19/22 08:45 Dose: 37.5 mg A/P Narrative A/P Narrative: A: *Hepatic Encephalopathy: appears to be baseline now per son -Patient states he has been taking his lactulose and having several bowel movements a day -Seems ammonia has been chronically elevated per records *Alcoholic cirrhosis: Follows with Shivani Soto -Sequelae of thrombocytopenia/hyperbilirubinemia/transaminitis/ small esophageal varices -no ascites on u/s *h/o ITP: *Hypokalemia, mild: *Depression/anxiety: *DM2: *Hypothyroidism: tsh 0.04 and T4 1.79 P: -Continue home lactulose(titrate to 2-3 BM/day) and added rifaximin -Potassium repletion -Hold diuretic for now -ssi -decrease levothyroxine -PT/OT -CM for placement needs -ppx: SCD(hold chemical for plt <50k) Time Spent With Patient Time: Total time spent is greater than 50% in coordination of care (as documented) at patient's floor/unit and/or counseling patient: QUALITY Stroke Symptom Onset Unknown: No VTE Deep Vein Thrombosis/Pulmonary Embolism Present on Admission: No
[2022-06-20] MEDS: VENLAFAXINE 37.5 MG TAB.ER.24H PO SCH (08:33)
[2022-06-20] MEDS: LACTULOSE 20 GM/30 ML ORAL.SOL PO SCH (08:33)
[2022-06-20] MEDS: PROPRANOLOL 10 MG TABLET PO SCH (08:33)
[2022-06-20] MEDS: RIFAXIMIN 550 MG TABLET PO SCH (08:33)
[2022-06-20 09:31] LABS: Blood Urea Nitrogen 12 mg/dL (8-23); Calcium 8.8 mg/dL (8.6-10.4); Carbon Dioxide 25 mmol/L (22-30); Chloride 99 mmol/L (96-108); Glomerular Filtration Rate 96; Glucose 109 mg/dL (70-105)
[2022-06-20] MEDS ORDERED: POTASSIUM CHLORIDE 20 MEQ TABLET PO ONE ×2 (10:00→14:00)
--- NOTE | 2022-06-20 10:06 | Discharge Summary ---
Discharge Provider Provider IMPORTANT FOLLOW-UP INFORMATION FOR PCP: Decreased patient's levothyroxine and added rifaximin, held diuretic for hypokalemia. Patient information: Note initiated : 06/20/22 at 10:04 am Service Date, if different from initiated Date: [] Patient: Nolan Trinh 71 y/o M admitted on 06/18/22 for anxiety. Chief Complaint: [] Date of admission: 06/18/22 22:47 Discharge date: 06/20/22 Primary care physician: Albaro Benjamin MD Consults: 06/18/22 Consult to Physician [CONS] Stat Comment: Consulting Provider: Daryn Webb Reason For Exam: Physician to Consult COURSE Hospital Course Hospital course: Interval history: History of present illness: Mr. Trinh is a 71 year old M Presents to the ED with anxiety and confusion. Per the he has been increasingly confused today and she says he has been more drowsy and sleepy but also more anxious. He has had issues with anxiety in the past per notes. He also has a history of alcoholic cirrhosis. His ammonia was 173 in the ED and I also note that looking at the old labs on March he had a level of 143. He says he takes lactulose every day and has several bowel movements a day. He says he quit drinking alcohol 3 months ago. Follows with Shivani Barnes and Dr. Wong. He had an EGD a week ago that showed mild esophageal varices and congestive gastropathy was noted. Patient has some nausea but no vomiting today. Patient denies abdominal swelling or pain. No report of GI bleeding. 06/19 Still with some confusion per son. Ammonia mildly decreased but still elevated. Unable to get the rifaximin until today. TSH low and T4 mildly high, likely contributing to his anxiety/agitation. We will hold levothyroxine for now and lower it when we restart. Platelets stable. Mild hypokalemia and will replace. 06/20 Patient feeling better. Much more clear. Per son is at baseline. No overnight event or new complaints. Patient will continue on rifaximin and close follow- up with GI A: *Hepatic Encephalopathy: appears to be baseline now per son -Patient states he has been taking his lactulose and having several bowel movements a day -Seems ammonia has been chronically elevated per records *Alcoholic cirrhosis: Follows with Shivani Barnes -Sequelae of thrombocytopenia/hyperbilirubinemia/transaminitis/ small esophageal varices -no ascites on u/s *h/o ITP: *Hypokalemia, mild: *Depression/anxiety: *DM2: *Hypothyroidism: tsh 0.04 and T4 1.79 P: -Continue home lactulose(titrate to 2-3 BM/day) and added rifaximin -decrease levothyroxine -f/u with Kerline barnes Discharge diagnosis: Headache Encephalopathy hyperthyroidism Secondary discharge diagnosis: Alcoholic cirrhosis history of ITP hypokalemia depression anxiety diabetes hypothyroidism Time Spent with Patient Time attestation: Total time spent providing and/or coordinating discharge services: Time spent: Greater than 30 minutes EXAM Constitutional Vitals: Temp Pulse Resp BP Pulse Ox O2 Del Method 98.7 F 57 L 20 104/56 97 06/20/22 07:22 06/20/22 04:00 06/20/22 07:22 06/20/22 07:22 06/20/22 07:22 06/20/22 07:22 Discharge Data Data Completed and Pending Labs on day of discharge: Labs from last 24 hours 06/20/22 06/20/22 05:48 05:48 Sodium 136 Potassium 3.2 L Chloride 99 Carbon Dioxide 25 Anion Gap 12.0 BUN 12 Creatinine 0.7 GFR Calculation 96 Glucose 109 H Calcium 8.8 Ammonia 70 H Discharge Plan Patient/Caregiver Discharge Instructions Activity: increase activity as tolerated Diet: Low Fat and Consistent Carbohydrate Prescriptions: New levothyroxine 150 mcg Tablet 150 mcg PO QAMAC Qty: 30 0RF Xifaxan 550 mg tablet 550 mg PO BID Qty: 60 0RF Continued (DME) needle (disp) 30 gauge [BD Specialty Use [place]] 30 x 1 " needle See Dose Instructions .ROUTE .MEDSUPPLY Qty: 15 0RF Dose Instruction: As directed Rx Instructions: use as directed for B12 injections monthly glipizide 5 mg tablet extended release 24 hr 5 mg PO QDAY Qty: 30 2RF sildenafil 50 mg tablet 50 mg PO ONCE PRN (Reason: Sexual Activity) Rx Instructions: administer 30 minutes to 4 hours before activity (DME) blood-glucose meter [Accu-Chek Cecelia Plus Meter] misc See Dose Instructions .ROUTE .MEDSUPPLY Qty: 1 0RF Dose Instruction: As directed Rx Instructions: As directed (DME) Accu-Chek Cecelia Plus test strp strip See Dose Instructions .ROUTE .MEDSUPPLY Qty: 100 5RF Dose Instruction: As directed Rx Instructions: Test 1 - 2 times a day venlafaxine 37.5 mg capsule,extended release 24hr 37.5 mg PO QDAY Qty: 30 1RF Rx Instructions: Call office in 2 weeks. B Complex 4 tab PO QDAY propranolol 10 mg tablet 1 tab PO BID cyanocobalamin (vitamin B-12) 1,000 mcg/mL solution 1 ml IM QMONTH BD 3 ml syringe with needles 1 ea IM MONTHLY Rx Instructions: use as directed for B12 injections IM MONTHLY alprazolam [Xanax] 0.5 mg tablet 0.25 mg PO QDAY PRN (Reason: anxiety) Rx Instructions: Patient is aware of potential for abuse, cognitive dysfunction lactulose 10 gram/15 mL solution 15 ml PO QAM Qty: 946 2RF Rx Instructions: Titrate to 2-3 soft bowel movements per day. Discontinued chlorthalidone 25 mg tablet 25 mg PO QDAY Qty: 30 11RF Rx Instructions: 1 tablet in a.m. levothyroxine 112 mcg tablet 224 mcg PO QAMAC Follow Up Plan Follow up with: Albaro Benjamin MD [Primary Care Provider] - Shivani Barnes ARNP [Nurse Practitioner] - Patient Disposition: Home, Self-Care Prognosis: Fair Overall status at discharge: patient is progressing back to baseline Discharge Orders: Discharge Order (Routine); Ordered 06/20/22 Ordered By: Daryn Webb [facility] VTE Deep Vein Thrombosis/Pulmonary Embolism Present on Admission: No
[2022-06-22] MEDS ORDERED: LEVOTHYROXINE 150 MCG TABLET PO SCH (07:30)
== END 2022-06-20 12:30 | disposition home or self-care (01) | DRG 433 ==
LOC: ED 19:44 → MEDSUR 22:47
PROVIDERS: ADMIT Internal Medicine; ATTEND Internal Medicine

== ENCOUNTER 2024-04-14 21:20 | Inpatient (IN) ==
[2024-04-14 22:41] LABS: Basophils # (Auto) 0.01 K/mcL (0.00-0.30); Basophils % (Auto) 0.1 % (0.0-2.0); Eosinophils # (Auto) 0.09 K/mcL (0.00-0.70); Eosinophils % (Auto) 1.2 % (0.0-7.0); Hematocrit 30.4 % (40.1-51.0); Hemoglobin 11.2 g/dL (13.7-17.5); Lymphocytes # (Auto) 0.44 K/mcL (1.50-4.80); Mean Cell Volume 106.7 fL (80.0-100.0); Mean Corpuscular HGB Conc 36.8 g/dL (31.0-36.0); Mean Platelet Volume 10.5 fL (8.8-12.5); Monocytes # (Auto) 0.96 K/mcL (0.10-0.90); Monocytes % (Auto) 13.2 % (1.0-12.0); Platelet Count 63 K/mcL (140-440); RBC 2.85 M/mcL (4.63-6.08); Red Cell Distribution Width 13.7 % (11.5-14.5); WBC 7.3 K/mcL (4.5-11.0)
[2024-04-14 22:58] LABS: Thyroid Stimulating Hormone 0.19 uIU/mL (0.27-5.01)
[2024-04-14 23:24] LABS: ALT/SGPT 39 U/L (<40); AST/SGOT 47 U/L (<40); Albumin 2.8 gm/dL (3.2-5.2); Alkaline Phosphatase 151 U/L (39-117); Bilirubin,Total 3.4 mg/dL (0.1-1.0); Blood Urea Nitrogen 15 mg/dL (8-23); Carbon Dioxide 20 mmol/L (22-30); Chloride 85 mmol/L (96-108); Globulin 2.9 gm/dL (2.2-3.7); Glomerular Filtration Rate 89; Glucose 123 mg/dL (70-105); Potassium 4.6 mmol/L (3.3-5.1); Sodium 116 mmol/L (133-145)
[2024-04-15] MEDS: 0.9 % SODIUM CHLORIDE 1,000 ML IV SCH (00:23)
[2024-04-15] MEDS ORDERED: ONDANSETRON 4 MG/2 ML VIAL IV PRN (01:56)
[2024-04-15] MEDS ORDERED: IPRATROPIUM/ALBUTEROL 3 ML AMPUL.NEB NEB PRN (01:56)
[2024-04-15 03:14] LABS: Sodium 116 mmol/L (133-145)
[2024-04-15 04:17] LABS: ALT/SGPT 39 U/L (<40); AST/SGOT 48 U/L (<40); Albumin 2.9 gm/dL (3.2-5.2); Alkaline Phosphatase 132 U/L (39-117); Bilirubin,Direct 1.7 mg/dL (<0.3); Bilirubin,Total 4.3 mg/dL (0.1-1.0); Blood Urea Nitrogen 15 mg/dL (8-23); Calcium 8.1 mg/dL (8.6-10.4); Carbon Dioxide 21 mmol/L (22-30); Chloride 86 mmol/L (96-108); Globulin 2.9 gm/dL (2.2-3.7); Glomerular Filtration Rate 95; Glucose 116 mg/dL (70-105); Lactate Dehydrogenase 224 U/L (135-225); Phosphorous 3.1 mg/dL (2.5-4.5); Potassium 4.2 mmol/L (3.3-5.1); Sodium 117 mmol/L (133-145); Triglycerides 46 mg/dL (<150); Uric Acid 6.1 mg/dL (2.5-8.0)
[2024-04-15] MEDS: 0.9 % SODIUM CHLORIDE 10 ML SYRINGE IV SCH (05:38)
[2024-04-15 05:45] LABS: Appearance,Urine HAZY (Clear); Bilirubin,Urine Negative (Negative); Color,Urine AMBER; Culture Indicated,Urine No; Glucose,Urine (UA) Negative (Negative); Ketones,Urine 5 mg/dL (Negative); Leukocyte Esterase,Urine Negative /uL (Negative); Nitrate,Urine Negative (Negative); Protein,Urine Negative (Negative); Sodium, Urine Random < 20 mmol/L; Specific Gravity,Urine 1.015 (1.000-1.035); Urine Blood Negative (Negative)
[2024-04-15 05:58] LABS: Osmolality,Urine 419 mOSM/kg (80-1000)
[2024-04-15 08:46] LABS: Sodium 117 mmol/L (133-145)
[2024-04-15] MEDS: FUROSEMIDE 20 MG/2 ML VIAL IV ONE ×2 (09:13→13:07)
[2024-04-15] MEDS: HEPARIN 5,000 UNIT/ML VIAL SQ SCH (09:15)
[2024-04-15 12:43] LABS: Sodium 117 mmol/L (133-145)
[2024-04-15] MEDS: SODIUM CHLORIDE 1 GM TABLET PO ONE (13:07)
[2024-04-15] MEDS: SODIUM CHLORIDE 3% IV ONE (17:05)
[2024-04-15 20:08] LABS: Sodium 120 mmol/L (133-145)
[2024-04-16 00:25] LABS: Sodium 135 mmol/L (133-145)
[2024-04-16 00:58] LABS: Sodium 120 mmol/L (133-145)
[2024-04-16] MEDS: DESMOPRESSIN ACETATE 1 MCG in 0.9 % SODIUM CHLORIDE 50 ML IV ONE (02:17)
[2024-04-16] MEDS: DEXTROSE 5% IN WATER 250 ML IV SCH (02:17)
[2024-04-16 03:28] LABS: Sodium 122 mmol/L (133-145)
[2024-04-16 05:42] LABS: ALT/SGPT 39 U/L (<40); AST/SGOT 46 U/L (<40); Albumin 2.8 gm/dL (3.2-5.2); Albumin/Globulin Ratio 0.9 (1.0-2.3); Alkaline Phosphatase 133 U/L (39-117); Bilirubin,Direct 1.6 mg/dL (<0.3); Bilirubin,Total 3.8 mg/dL (0.1-1.0); Blood Urea Nitrogen 16 mg/dL (8-23); Carbon Dioxide 21 mmol/L (22-30); Chloride 92 mmol/L (96-108); Glomerular Filtration Rate 89; Glucose 141 mg/dL (70-105); Lactate Dehydrogenase 215 U/L (135-225); Phosphorous 2.9 mg/dL (2.5-4.5); Potassium 4.3 mmol/L (3.3-5.1); Sodium 121 mmol/L (133-145); Triglycerides 54 mg/dL (<150); Uric Acid 5.8 mg/dL (2.5-8.0)
[2024-04-16 07:28] LABS: Basophils # (Auto) 0.02 K/mcL (0.00-0.30); Basophils % (Auto) 0.4 % (0.0-2.0); Eosinophils # (Auto) 0.07 K/mcL (0.00-0.70); Eosinophils % (Auto) 1.3 % (0.0-7.0); Hematocrit 32.5 % (40.1-51.0); Hemoglobin 11.7 g/dL (13.7-17.5); Lymphocytes # (Auto) 0.36 K/mcL (1.50-4.80); Lymphocytes % (Auto) 6.5 % (15.5-49.0); Mean Cell Volume 106.9 fL (80.0-100.0); Mean Platelet Volume 11.6 fL (8.8-12.5); Monocytes # (Auto) 0.75 K/mcL (0.10-0.90); Monocytes % (Auto) 13.4 % (1.0-12.0); Neutrophils % (Auto) 76.1 % (38.0-78.0); Platelet Count 57 K/mcL (140-440); RBC 3.04 M/mcL (4.63-6.08); Red Cell Distribution Width 14.2 % (11.5-14.5); WBC 5.6 K/mcL (4.5-11.0)
[2024-04-16 10:29] LABS: Blood Urea Nitrogen 16 mg/dL (8-23); Calcium 8.4 mg/dL (8.6-10.4); Carbon Dioxide 20 mmol/L (22-30); Chloride 91 mmol/L (96-108); Glomerular Filtration Rate 89; Glucose 190 mg/dL (70-105); Potassium 4.5 mmol/L (3.3-5.1); Sodium 122 mmol/L (133-145)
[2024-04-16] MEDS: LEVOTHYROXINE 150 MCG TABLET PO SCH (10:47)
[2024-04-16] MEDS: RIFAXIMIN 550 MG TABLET PO SCH (10:47)
[2024-04-16] MEDS: PNEUMOCOCCAL 23-VAL P-SAC VAC 0.5 ML SYRINGE IM ONE (10:51)
[2024-04-16 14:20] LABS: Blood Urea Nitrogen 15 mg/dL (8-23); Calcium 8.3 mg/dL (8.6-10.4); Carbon Dioxide 21 mmol/L (22-30); Chloride 92 mmol/L (96-108); Glomerular Filtration Rate 89; Glucose 160 mg/dL (70-105); Potassium 4.5 mmol/L (3.3-5.1); Sodium 124 mmol/L (133-145)
[2024-04-16 18:00] LABS: Blood Urea Nitrogen 15 mg/dL (8-23); Calcium 8.4 mg/dL (8.6-10.4); Carbon Dioxide 23 mmol/L (22-30); Chloride 92 mmol/L (96-108); Glomerular Filtration Rate 89; Glucose 161 mg/dL (70-105); Potassium 4.7 mmol/L (3.3-5.1); Sodium 125 mmol/L (133-145)
[2024-04-16] MEDS: LORazepam 1 MG TABLET PO PRN (18:45)
[2024-04-16] MEDS: LACTULOSE 20 GM/30 ML ORAL.SOL PO PRN (19:31)
[2024-04-16] MEDS: TEMAZEPAM 15 MG CAPSULE PO PRN (19:38)
[2024-04-16 22:47] LABS: Blood Urea Nitrogen 15 mg/dL (8-23); Calcium 8.4 mg/dL (8.6-10.4); Carbon Dioxide 22 mmol/L (22-30); Chloride 93 mmol/L (96-108); Glomerular Filtration Rate 95; Glucose 136 mg/dL (70-105); Potassium 4.5 mmol/L (3.3-5.1); Sodium 125 mmol/L (133-145)
[2024-04-17 07:10] LABS: Blood Urea Nitrogen 14 mg/dL (8-23); Calcium 8.2 mg/dL (8.6-10.4); Carbon Dioxide 22 mmol/L (22-30); Chloride 94 mmol/L (96-108); Glomerular Filtration Rate 94; Glucose 131 mg/dL (70-105); Potassium 4.5 mmol/L (3.3-5.1); Sodium 125 mmol/L (133-145)
[2024-04-17 07:11] LABS: ALT/SGPT 39 U/L (<40); AST/SGOT 47 U/L (<40); Alkaline Phosphatase 132 U/L (39-117); Bilirubin,Direct 1.8 mg/dL (<0.3); Bilirubin,Total 4.4 mg/dL (0.1-1.0); Lactate Dehydrogenase 214 U/L (135-225); Phosphorous 2.9 mg/dL (2.5-4.5); Triglycerides 51 mg/dL (<150); Uric Acid 5.2 mg/dL (2.5-8.0)
[2024-04-17 08:09] LABS: Basophils # (Auto) 0.03 K/mcL (0.00-0.30); Basophils % (Auto) 0.5 % (0.0-2.0); Eosinophils # (Auto) 0.06 K/mcL (0.00-0.70); Hematocrit 33.3 % (40.1-51.0); Hemoglobin 12.1 g/dL (13.7-17.5); Lymphocytes # (Auto) 0.34 K/mcL (1.50-4.80); Lymphocytes % (Auto) 5.8 % (15.5-49.0); Mean Cell Volume 105.7 fL (80.0-100.0); Mean Corpuscular HGB Conc 36.3 g/dL (31.0-36.0); Mean Platelet Volume 11.2 fL (8.8-12.5); Monocytes # (Auto) 0.77 K/mcL (0.10-0.90); Monocytes % (Auto) 13.1 % (1.0-12.0); Neutrophils % (Auto) 77.6 % (38.0-78.0); Platelet Count 57 K/mcL (140-440); RBC 3.15 M/mcL (4.63-6.08); Red Cell Distribution Width 14.4 % (11.5-14.5); WBC 5.9 K/mcL (4.5-11.0)
[2024-04-17] MEDS: LACTULOSE 20 GM/30 ML ORAL.SOL PO SCH (08:32)
[2024-04-17] MEDS: ALPRAZolam 0.25 MG TABLET PO PRN (19:56)
[2024-04-18 06:40] LABS: Basophils # (Auto) 0.02 K/mcL (0.00-0.30); Basophils % (Auto) 0.3 % (0.0-2.0); Eosinophils # (Auto) 0.08 K/mcL (0.00-0.70); Eosinophils % (Auto) 1.3 % (0.0-7.0); Hematocrit 36.6 % (40.1-51.0); Hemoglobin 12.6 g/dL (13.7-17.5); Lymphocytes # (Auto) 0.38 K/mcL (1.50-4.80); Lymphocytes % (Auto) 6.1 % (15.5-49.0); Mean Cell Volume 115.8 fL (80.0-100.0); Mean Corpuscular HGB Conc 34.4 g/dL (31.0-36.0); Mean Platelet Volume 11.6 fL (8.8-12.5); Monocytes % (Auto) 12.7 % (1.0-12.0); Neutrophils % (Auto) 78.6 % (38.0-78.0); Platelet Count 60 K/mcL (140-440); RBC 3.16 M/mcL (4.63-6.08); WBC 6.3 K/mcL (4.5-11.0)
[2024-04-18 07:00] LABS: ALT/SGPT 44 U/L (<40); AST/SGOT 60 U/L (<40); Albumin 2.9 gm/dL (3.2-5.2); Albumin/Globulin Ratio 0.8 (1.0-2.3); Alkaline Phosphatase 155 U/L (39-117); Bilirubin,Direct 1.7 mg/dL (<0.3); Bilirubin,Total 3.9 mg/dL (0.1-1.0); Blood Urea Nitrogen 13 mg/dL (8-23); Calcium 8.8 mg/dL (8.6-10.4); Carbon Dioxide 22 mmol/L (22-30); Chloride 92 mmol/L (96-108); Globulin 3.6 gm/dL (2.2-3.7); Glomerular Filtration Rate 94; Glucose 153 mg/dL (70-105); Lactate Dehydrogenase 263 U/L (135-225); Phosphorous 3.1 mg/dL (2.5-4.5); Potassium 4.8 mmol/L (3.3-5.1); Sodium 124 mmol/L (133-145); Triglycerides 67 mg/dL (<150); Uric Acid 4.6 mg/dL (2.5-8.0)
[2024-04-18 07:29] LABS: INR 1.2 (0.9-1.1); Prothrombin Time 15.6 sec (11.9-14.5)
[2024-04-18 08:26] VITALS: O2SAT 100
[2024-04-18 12:08] VITALS: TEMP 98.6
== END 2024-04-18 13:02 | DRG 641 ==
LOC: ED 21:20 → ICU 04-15 01:46
PROVIDERS: ADMIT Student in an Organized Health Care Education/Training Program; ATTEND Internal Medicine